=== PATIENT | female | born 1995 | race Caucasian/White ===

== ENCOUNTER 2016-05-07 19:25 | Emergency (ER) | payer SELFPAY ==
[2016-05-07] MEDS ORDERED: SODIUM CHLORIDE 0.9% 1,000 ML ONE (20:43)
== END 2016-05-07 21:44 | disposition home or self-care (01) ==
LOC: ER 19:25
DX: R42 Dizziness and giddiness (principal); N30.00 Acute cystitis without hematuria; F17.210 Nicotine dependence, cigarettes, uncomplicated
CPT/HCPCS: 36415; 80053; 81001; 82947; 83690; 84703; 85025; 87088; 93005; 96360

== ENCOUNTER 2016-05-18 22:57 | Emergency (ER) | payer MEDICAID ==
[2016-05-19] MEDS ORDERED: DEXAMETHASONE 4 MG/ML VIAL ONE (00:23)
== END 2016-05-19 00:40 | disposition home or self-care (01) ==
LOC: ER 22:57
DX: J02.0 Streptococcal pharyngitis (principal); F17.210 Nicotine dependence, cigarettes, uncomplicated
CPT/HCPCS: 87880